=== PATIENT | female | born 1985 | race Caucasian/White ===

== ENCOUNTER 2018-07-01 20:58 | Emergency (ER) | payer BC ==
[~2018-07-01] VITALS: Ht 170.2 cm; Wt 95.5 kg
[2018-07-01 21:04] VITALS: BP 110/62; TEMP 98.4
[2018-07-01] MEDS ORDERED: ATIVAN 1MG T1 MG/TAB PO (21:12)
[2018-07-01] MEDS ORDERED: TRILEPTAL600 MG PO (21:13)
[2018-07-01] MEDS ORDERED: LEXAPRO 5MG5 MG PO (21:14)
[2018-07-01] MEDS ORDERED: MULTI VITAMINS1 TAB PO (21:14)
[2018-07-01] MEDS ORDERED: CEPHALEXIN500 M1 PO (22:02)
[2018-07-01 22:15] VITALS: PULSE 85
== END 2018-07-01 22:15 | disposition home or self-care (01) ==
LOC: COL.ER 20:58
DX: S61.210A Laceration without foreign body of right index finger without damage to nail, initial encounter (principal); G40.909 Epilepsy, unspecified, not intractable, without status epilepticus; Z23 Encounter for immunization; W26.0XXA Contact with knife, initial encounter; Y93.G3 Activity, cooking and baking; Y92.009 Unspecified place in unspecified non-institutional (private) residence as the place of occurrence of the external cause

== ENCOUNTER → 2018-10-11 | Outpatient (CLI) | payer BC ==
[~2018-10-11] MED LIST: ATIVAN 1MG T1 MG/TAB PO; CEPHALEXIN500 M1 PO; LEXAPRO 5MG5 MG PO; MULTI VITAMINS1 TAB PO; TRILEPTAL600 MG PO
== END ==
LOC: MC.RAD 13:31
DX: R92.8 Other abnormal and inconclusive findings on diagnostic imaging of breast (principal)